=== PATIENT | male | born 1995 | race Caucasian/White ===

== ENCOUNTER 2016-08-18 12:59 | Emergency (ER) | payer OTHER ==
[~2016-08-18] VITALS: Ht 177.8 cm; Wt 90.3 kg
[2016-08-18 13:05] VITALS: TEMP 36.7; Ht 177.8 cm; Wt 90.3 kg
[2016-08-18] MEDS ORDERED: RABIES IMMUNE GLOBULIN (HUMAN) 150 INTER.UNIT/ML 2 ML VIAL IM. ONE (13:30)
--- NOTE | 2016-08-18 13:32 | EMERGENCY ROOM VISIT NOTE ---
ED Visit Note First contact with patient: 13:12 CHIEF COMPLAINT: Need for rabies immunoglobulin HISTORY OF PRESENT ILLNESS: This 21-year-old male patient presents to the emergency department ambulatory. There is concern for rabies exposure as there was a bat in his house overnight but he does not believe he was bitten. The patient was seen at [facility] and given Imovax. They did not have the immunoglobulin and therefore the patient was referred to the emergency department. REVIEW OF SYSTEMS: A 6 system review of systems was completed with positives and pertinent negatives listed in the HPI. ALLERGIES: No known allergies MEDICATIONS: None PMH: None. SOCIAL HISTORY: The patient is a [employer] student. PHYSICAL EXAM: Vital Signs: Reviewed Nurse's notes, vital signs stable. GENERAL : This is a 21-year-old male, in no acute distress, well-developed, well- nourished. HEAD: Atraumatic, without temporal or scalp tenderness. EYES: PERRLA, EOMI, no discharge or injection. SKIN: There were no obvious punctures. Capillary refill less than 2 seconds. NEUROLOGICAL: Alert and oriented to person place and time. Normal sensation to light and sharp touch. MUSCULOSKELETAL: Motor functions grossly intact of the arms and legs. Full range of motion. EMERGENCY DEPARTMENT COURSE: I examined the patient. The patient was given RIG 20 Units/kg. he has already received the Imovax today. He should receive the additional rabies vaccination series per [facility]. He will return on Monday for his day 3 vaccination. He'll be out of town for his day 7 vaccination and oversee that there and he will go to [facility] to receive his last vaccination. The patient was observed for 20 minutes with no reaction. The patient was discharged home in stable condition. DIAGNOSIS: Rabies prophylaxis DISCHARGE INSTRUCTIONS: Today is day 0. Return to the ER on day 3. Have the vaccinations done on days 7 and 14 as previously discussed with [facility]. Return sooner or follow up with your family doctor for signs of infection (increased redness, discharge, fever) or for complications with the vaccine series. Current/Historical Medications No Active Prescriptions or Reported Meds Allergies Coded Allergies: No Known Allergies (Unverified , 08/18/16) Vital Signs Date Time Temp Pulse Resp B/P (MAP) Pulse Ox O2 Delivery O2 Flow Rate FiO2 08/18/16 14:17 65 18 131/96 100 Room Air 08/18/16 13:05 36.7 60 16 138/86 99 Room Air Medications Administered Medications (Trade) Dose Ordered Sig/Lew Route Start Time Stop Time Status Last Admin Dose Admin Rabies Immune Globulin (Imogam Rabies Inj) 1,800 interunit ONCE ONCE IM. 08/18/16 13:30 08/18/16 13:31 DC 08/18/16 13:51 1,800 INTERUNIT Departure Information Impression Primary Impression: Rabies, need for prophylactic vaccination against Dispostion Home / Self-Care Condition GOOD Prescriptions No Active Prescriptions or Reported Meds Referrals No Doctor, Assigned (PCP) Patient Instructions My [facility], Rabies Immune Globulin human RIG solution for injection Additional Instructions Today is day 0. Return to the ER on day 3. Have the vaccinations done on days 7 and 14 as previously discussed with [facility] services. Return sooner or follow up with your family doctor for signs of infection (increased redness, discharge, fever) or for complications with the vaccine series.
[2016-08-18 14:17] VITALS: BP 131/96; PULSE 65; O2SAT 100
== END 2016-08-18 14:21 | disposition home or self-care (01) ==
LOC: C.EDB 13:01 → C.EDD 14:21
DX: Z23 Encounter for immunization (principal); Z20.3 Contact with and (suspected) exposure to rabies

== ENCOUNTER 2016-08-21 16:53 | Emergency (ER) | payer OTHER ==
[~2016-08-21] VITALS: Ht 177.8 cm; Wt 92.0 kg
[2016-08-21 16:59] VITALS: BP 133/83; PULSE 67; TEMP 36.8; O2SAT 97; Ht 177.8 cm; Wt 92.0 kg
[2016-08-21] MEDS ORDERED: RABIES VACCINE (IMOVAX) HUMAN DIPL CELL 2.5 INTER.UNIT/ML SYR IM. ONE (17:15)
--- NOTE | 2016-08-21 17:16 | EMERGENCY ROOM VISIT NOTE ---
History First contact with patient: 17:02 Chief Complaint: RABIES VACCINE REPEAT VISIT Stated Complaint: RABIES INJECTION History of Present Illness The patient is a 21 year old male who presents to the Emergency Room for his next Imovax injection as part of a post exposure prophylaxis series. The patient was awakened with a bat in his place of residence. He was here on for HRIG treatment. He received his Imovax injection at [facility] the same day. The patient reports that he will return to [facility] this following for his third injection , and will be in [place] when he will need his fourth injection. The patient denies any adverse reactions to the initial injections. Review of Systems 6 system review was performed and was negative except for pertinent positives and negatives as indicated in history of present illness Past Medical/Surgical History Medical Problems: (1) No significant past medical history Surgical Problems: (1) No history of previous surgery Family History Unremarkable Social History Smoking Status: Never Smoker Alcohol Use: occasionally Marital Status: single Occupation Status: [employer] Current/Historical Medications No Active Prescriptions or Reported Meds Allergies Coded Allergies: No Known Allergies (Unverified , 08/18/16) Physical Exam Vital Signs Date Time Temp Pulse Resp B/P (MAP) Pulse Ox O2 Delivery O2 Flow Rate FiO2 08/21/16 16:59 36.8 67 12 133/83 97 Physical Exam CONSTITUTIONAL: Healthy and well nourished. HEENT: Normocephalic, atraumatic. Pupils equal, round and reactive. INTEGUMENTARY: No rash or other significant dermatologic conditions noted. NEUROLOGIC: No focal neurologic deficits noted. Medical Decision & Procedures ED Course The patient was administered Imovax without any adverse reaction. The patient will follow-up with [facility] on for his day 7 Imovax. Because the patient will be on travel the following , he was provided a prescription for the Imovax injection so hopefully this can be performed as a nursing procedure and not need a full evaluation from emergency Department staff at the hospital that he seeks further treatment. The patient was appreciative and denied any pain at the time of discharge. Medical Decision Impression Primary Impression: Need for prophylactic vaccination against rabies Departure Information Dispostion Home / Self-Care Prescriptions No Active Prescriptions or Reported Meds Forms HOME CARE DOCUMENTATION FORM, IMPORTANT VISIT INFORMATION Patient Instructions [facility] Additional Instructions Follow-up with [facility] on 08/25/16 for your next Imovax injection.
== END 2016-08-21 17:35 | disposition home or self-care (01) ==
LOC: C.EDB 16:54 → C.EDD 17:35
DX: Z23 Encounter for immunization (principal); Z20.3 Contact with and (suspected) exposure to rabies